=== PATIENT | female | born 1950 ===

== ENCOUNTER 2024-09-13 14:16 | Emergency (ER) | payer OTHER, SELFPAY ==
[2024-09-13] VITALS (7 sets, daily range): BP systolic 114–150; BP diastolic 57–80; BMI 28.3
[2024-09-13 15:10] LABS: % Basophils 0.6 % (0-2); % Eosinophils 1.1 % (0-6); % Immature Granulocytes 0.9 % (0-0.5); % Lymphocytes 18.6 % (20.5-51.1); % Monocytes 6.4 % (1.7-9.3); % Neutrophils 72.4 % (42.2-75.2); Absolute Basophils 0.1 10^3/uL (0-0.2); Absolute Eosinophils 0.1 10^3/uL (0-0.7); Absolute Immature Granulocytes 0.1 10^3/uL (0-0.05); Absolute Lymphocytes 1.6 10^3/uL (1.2-3.4); Absolute Monocytes 0.6 10^3/uL (0.1-0.6); Absolute Neutrophils 6.3 10^3/uL (1.4-6.5); Hematocrit 47.1 % (37.0-47.0); Hemoglobin 15.3 g/dL (12.0-16.0); Mean Corp Hgb Conc. 32.5 g/dL (33.0-37.0); Mean Corpuscular Hgb 29.5 pg (27.0-31.0); Mean Corpuscular Volume 90.9 fL (81.0-99.0); Mean Platelet Volume 11.3 fL (7.4-10.4); Nucleated Red Blood Cells % 0 %; Platelet Count 192 10^3/uL (130-400); Red Blood Cell Count 5.18 10^6/uL (4.20-5.40); Red Cell Dist. Width 14.5 % (11.5-14.5); White Blood Cell Count 8.7 10^3/uL (4.8-10.8)
[2024-09-13 15:18] LABS: Urine Albumin Trace (Neg - Trace); Urine Bilirubin Negative (Negative); Urine Character Clear (Clear); Urine Color Straw; Urine Glucose 3+ (Negative); Urine Ketone Negative (Negative); Urine Leukocyte Negative (Negative); Urine Nitrite Negative (Negative); Urine Occult Blood Negative (Negative); Urine Urobilinogen Negative (Neg - 1+)
[2024-09-13 15:22] LABS: ALT (SGPT) 26 U/L (0-35); AST (SGOT) 29 U/L (14-36); Albumin 5.1 g/dl (3.5-5.0); Alkaline Phosphatase 70 U/L (38-126); Blood Urea Nitrogen 34 mg/dl (7-17); Calcium 9.9 mg/dl (8.4-10.2); Carbon Dioxide 20 mmol/L (22-30); Chloride 102 mmol/L (98-107); Glucose 130 mg/dl (70-99); Potassium 4.6 mmol/L (3.5-5.1); Sodium 136 mmol/L (135-145); Total Bilirubin 0.4 mg/dl (0.2-1.3); Total Protein 7.8 g/dl (6.3-8.2); eGFR > 60.00
--- NOTE | 2024-09-13 18:07 | ED.GENMED ---
History of Present Illness
General
Chief Complaint: Urinary Symptoms
Source: patient
Exam Limitations: none
Time Seen by Provider: 09/13/24 16:18
Nursing documentation reviewed up to this point in time: agreed with
History of Present Illness
History of Present Illness:
PT IS A 74 Y/O F
lives with brother
is here by herself right now saying she has had a few days of R lower back pain. she also has ahd some forgetfulness, more than usual, but seems to have documented h/o mild dementia/mild alzheimres
family is going o ut of town and watned to be sure she didn't have a brewing UTI
pt has no urinary complaints
her back pain is in the R low back and is worse with mvoement but not severe, better with aleve
she doesn't htink she crow sa kidney stone
she denies fever, vomiting, weakness, incontinence, numbness
she is here because she knows her brother wants to be sure she is ok before he leaves
they called jaredotis who agreed with her coming in.
Past History
Past History
ED Past Medical History: Other (alzheimers; kidney stone, uti)
ED Past Surgical History: Urological
Social History
Tobacco: Smoker
Alcohol: None
Personal:
Living: with family (Brother)
Review of Systems
Review of Systems
Allergies reviewed?: Yes
Unable to obtain full review of systems at this time due to: dementia
All Other Systems: Not applicable
Phy Exam
Physical Exam
Physical Exam:
GENERAL: Alert , in no apparent distress, comfortable at rest
HEAD: NCAT
NECK: no midline tenderness, active ROM intact, no paraspinal muscle tenderness;
CARDIAC: Regular rate and rhythm, no edema
LUNGS: Clear breath sounds bilaterally, no acute respiratory distress, no wheezes/rales/rhonchi
ABDOMEN: Soft, without focal tenderness, no r/g, no cvat, normal bowel sounds, nondistended
NEUROLOGICAL: Alert and oriented, no focal neuro deficits, CN intact, 5/5 strength, sensation intact, ambulation normal
SKIN: Warm and dry,
MUSCULOSKELETAL: No edema, well perfused.
Patient has no tenderness to palpation of the hip, minimal tenderness in the right SI joint
He has no pain with flexion of the left hip, external rotation, no other discomfort with ROM
Back: No midline tenderness, mild dextroscoliosis, slight right paraspinal muscle tenderness on exam, no swelling
negative straight leg raise Bilaterally
PSYCH: Normal and appropriate interaction.
Course
Orders/Labs/Results
Orders:
Orders
09/13/24 14:57
Complete Blood Count/With Diff Urgent
Comprehensive Metabolic Panel Urgent
Urinalysis Reflex To Culture Urgent
Date Specimen was Collected: 09/13/24
Time Specimen was Collected: 14:47
09/13/24 17:08
CT Abd/pel Without Iv Or Oral Urgent
Comment:
Reason For Exam: R lower back pain, h/o kidney stones
Abnormal Lab Results
09/13/24
14:57
Hct 47.1 H %
(37.0-47.0)
MCHC 32.5 L g/dL
(33.0-37.0)
MPV 11.3 H fL
(7.4-10.4)
Abs Immat Gran (auto) 0.1 H 10^3/uL
(0-0.05)
Immature Gran % 0.9 H %
(0-0.5)
Lymphocytes % 18.6 L %
(20.5-51.1)
Carbon Dioxide 20 L mmol/L
(22-30)
BUN 34 H mg/dl
(7-17)
Glucose 130 H mg/dl
(70-99)
Albumin 5.1 H g/dl
(3.5-5.0)
Urine Glucose 3+ A
(Negative)
09/13/24 14:57
09/13/24 14:57
Vital Signs
Initial and Last Documented VS:
Initial Vital Signs
Temp Pulse Resp BP Pulse Ox
36.3 C 97 18 150/71 99
09/13/24 14:44 09/13/24 14:44 09/13/24 14:44 09/13/24 14:44 09/13/24 14:44
Last Documented Vital Signs
Temp Pulse Resp BP Pulse Ox
36.3 C 85 18 136/80 97
09/13/24 14:44 09/13/24 22:45 09/13/24 22:45 09/13/24 22:45 09/13/24 22:45
MDM/Problems Addressed
Differential Diagnosis Includes:
msk back pain, kidney sotne, uti
MDM/Problems Addressed:
89 y/o F
known mild dementia
lives with borther
having some Low nonradiating R sided back pain for a few days, no trauma
no weakness/numbness
she doesn't feel this is kidney stone
but brother is going out of town and wanted her looked at
she has exam c/w msk lower back pain without red flag sxs for cauda equina; wbc normal, ua neg for ifnectiou
appreciate chroinc bun elevation which isn't much different and co2 elevation on chemistries
unforutmnateyl her CT took a long time to complete because of departmental need
but her CT showed incidental findigns that were disclosed (adrenal adenoma, breast cyst etc)
but no obstructive uropathy; has 2 stones in kidney
d/c home
*Critical Care Note
Total Time (30-74mins, 75-104mins- exclusive of procedures): Not Applicable
ED Attending Note
-
Portions of this chart may have been created with voice recognition software.� Occasional wrong word or��sound alike� substitutions may have occurred due to the inherent limitations of voice recognition software.
Discharge Plan
Departure
Patient Disposition: Home (Routine Discharge)
Date of Disposition: 09/13/24
Time of Disposition: 22:46
Patient with high blood pressure during this ER visit?: No
Discharge Problem:
Back pain
Instructions: Back Pain
Prescriptions:
No Action
losartan 50 mg Tablet
50 mg PO DAILY 30 Days Qty: 30 0RF
metformin 500 mg Tablet
500 mg PO BID@0800,1700 30 Days Qty: 60 0RF
atorvastatin 20 mg Tablet
20 mg PO QPM 30 Days Qty: 30 0RF
glipizide 5 mg Tablet
5 mg PO BID
sulfamethoxazole-trimethoprim [Bactrim DS] 800-160 mg Tablet
1 tab PO BID
Referrals:
Harriett Mark CRNP [Family Provider] - Follow up in 2-3 days
Activity Restrictions/Additional Instructions:
YOUR URINE AND CAT SCAN SHOWED NO SIGN OF INFECTION OR KIDNEY STONE
TRY TYLENOL OR MOTRIN FOR YOUR PAIN
LIDOCAINE PATCH 12 HOURS ON 12 HOURS OFF NEEDED FOR PAIN
RETURN FOR: SEVERE PAIN, FEVER, CHILLS, VOMITING, OR ANY COCNERNS
* YOUR CAT SCAN SHOWED INCIDENTAL MASS IN THE BREAST ON THE LEFT WHICH SHOULD HAVE MAMMOGRAM
YOU ALSO HAE A 1 CM RIGHT ADRENAL GLAND ADENOMA
YOU SHOULD FOLLOW THIS UP WITH BLOOD WORK TO MAKE SURE IT IS NOT FUNCTIONAL
YOU HAVE SOME DEGENERATIVE CHANGES IN YOUR SPINE
Interventions
Interventions:
*Risk Screen - Suicide Last Done: 09/13/24 14:44
*General Assessment Last Done: 09/13/24 14:44
*Neglect/Abuse Screening Last Done: 09/13/24 14:44
ED- Fall Risk Assessment Last Done: 09/13/24 22:46
*ED COVID-19 Vaccine History Last Done: 09/13/24 17:27
*Nursing Disposition Last Done: 09/13/24 22:46
ED-Female Genitourinary Assessment Last Done: 09/13/24 17:27
Discharge Date and Time
Discharge Date/Time: 09/13/24 22:46
Print Language: SAMI
== END 2024-09-13 22:46 | disposition home or self-care (01) ==
LOC: EMR 14:16
PROVIDERS: EMERGENCY PHYSICIAN Emergency Medicine; FAMILY PHYSICIAN Nurse Practitioner
DX: M54.50 Low back pain, unspecified (principal); G30.9 Alzheimer's disease, unspecified; F02.A0 Dementia in other diseases classified elsewhere, mild, without behavioral disturbance, psychotic disturbance, mood disturbance, and anxiety; F17.200 Nicotine dependence, unspecified, uncomplicated
CPT/HCPCS: 99284; 74176; 80053; 81003; 85025

== ENCOUNTER → 2024-11-11 09:56 | Outpatient (REF) | payer OTHER, SELFPAY | LOC: WDC 09:56 | PROVIDERS: ATTENDING PHYSICIAN Internal Medicine | DX: N63.20 Unspecified lump in the left breast, unspecified quadrant (principal); N63.22 Unspecified lump in the left breast, upper inner quadrant | CPT/HCPCS: 76642; 77062; 77066 ==

== ENCOUNTER → 2024-11-18 07:46 | Outpatient (REF) | payer OTHER, SELFPAY ==
--- NOTE | 2024-11-18 14:12 | OID.BR.INTR ---
[facility] Breast Navigator - Initial
- -
Date of Contact: 11/18/24
Met with patient. Patient's brother (spring coiler hand) given written information on navigator services available at [facility]. Will follow up as needed per protocol.
== END ==
LOC: WDC 07:46
PROVIDERS: ATTENDING PHYSICIAN Internal Medicine
DX: N63.11 Unspecified lump in the right breast, upper outer quadrant (principal); N63.23 Unspecified lump in the left breast, lower outer quadrant
CPT/HCPCS: 88305; 19083; 19084; 88341; 88360; A4648

== ENCOUNTER → 2024-12-16 06:49 | Outpatient (REF) | payer OTHER, SELFPAY | LOC: RAD 06:49 | PROVIDERS: ATTENDING PHYSICIAN Surgery; FAMILY PHYSICIAN Internal Medicine; OTHER PHYSICIAN Internal Medicine Hematology & Oncology | DX: C50.911 Malignant neoplasm of unspecified site of right female breast (principal); C50.912 Malignant neoplasm of unspecified site of left female breast; Z17.0 Estrogen receptor positive status [ER+] | CPT/HCPCS: 71270; 74178; 78306; A9503; Q9967 ==

== ENCOUNTER 2024-12-31 13:27 | Day surgery (SDC) | payer OTHER, SELFPAY ==
[2024-12-31] VITALS (13 sets, daily range): BP systolic 108–141; BP diastolic 44–77; BMI 29.1; BMI 28.0
--- NOTE | 2024-12-31 06:25 | ED.GENMED ---
History of Present Illness
General
Chief Complaint: Overdose Unintentional
Time Seen by Provider: 12/31/24 06:25
History of Present Illness
History of Present Illness:
TIME OF INITIAL ENCOUNTER: 6:30 AM
HPI: The patient presents with her brother/caregiver. She accidentally took Efferdent instead of taking Kimmy-Jackson. Brother noted some worsening of her known dementia yesterday but was concerned when he found out that she took the Efferdent.
The patient has some lower abdominal cramping. Otherwise, she has no specific complaints. No nausea.
EXAM:
GENERAL: Appears in no distress
HEENT: Moist oral mucosa
CARDIOVASCULAR: Regular rate and rhythm
PULMONARY: No respiratory distress, breathing is nonlabored, equal and clear breath sounds
ABDOMEN: Soft with no peritoneal signs however mild R>L abd tenderness
NEUROLOGIC: The patient has evidence of dementia, not oriented to month (thinks it may) or place (knows she is at a hospital but cannot name which 1), strength is equal in all extremities
EXTREMITIES: Moves all extremities equally, no tenderness, no edema
PYSCHIATRIC: Very limited historian, poor insight and judgment
NUMBER AND COMPLEXITY OF PROBLEMS ADDRESSED AT THE ENCOUNTER
� Chronic conditions affecting care: Dementia, high blood pressure, hyperlipidemia, diabetes, breast cancer
� Acute Exacerbation and/or Progression of Chronic Illness: This is an acute problem
� Differential Diagnosis includes: Accidental ingestion, electrolyte abnormality, GI side effects
AMOUNT AND/OR COMPLEXITY OF DATA TO BE REVIEWED AND ANALYZED
� I performed an independent evaluation of and my interpretation is:
EKG:
CT: I personally reviewed CT imaging and agree with radiologist interpretation. There is clearly a dilated appendix with stranding.
X-rays: Abdominal x-ray shows nonspecific bowel gas pattern
Laboratory Studies: White count 17.7, hemoglobin 13.4, BUN 27, creatinine 0.8
Other:
� Review of other/old records: I reviewed records, the patient went to the OR related to kidney stone in 2022
� Clinical information was obtained by an independent historian: I spoke to brother at bed
� Prescriptions/Medications Considered but not given:
� Further testing considered but not performed:
RISK OF COMPLICATIONS AND/OR MORBIDITY OR MORTALITY OF PATIENT MANAGEMENT
� Social determinants of health affecting care: Lives at home and brother's roll mill operator side
� Discussion with other providers:
� Escalation of care including admission/observation vs risk of discharge considered: The patient is found to have leukocytosis which is new. Send she does have associated abdominal cramping, CT imaging obtained.
ANY OTHER UPDATES:
8 AM: No change in clinical condition. I also spoke to Dr. Black, black and white printer operator at [facility] who agrees with the current workup but no other specific recommendations.
8:15 AM: CT shows evidence of appendicitis. She does have bilateral right greater than left abdominal tenderness. I ordered Unasyn. Notified Dr. Jacome. I also discussed with hospitalist however Dr. Singh recommends Dr. Jacome admit with consult
to hospitalist if needed.
8:52 AM: Awaiting Dr. Jacome evaluation in the ED.
9 AM: Dr. Jacome evaluated the patient in the ED. Planning on admitting to his service with consult to medicine.
Past History
Past History
ED Past Medical History: Other (alzheimers; kidney stone, uti)
ED Past Surgical History: Urological
Social History
Tobacco: Smoker
Alcohol: None
Personal:
Living: with family (Brother)
Phy Exam
Physical Exam
Physical Exam:
See HPI
Course
Orders/Labs/Results
Orders:
Orders
12/31/24 06:31
Complete Blood Count/With Diff Urgent
Comprehensive Metabolic Panel Urgent
12/31/24 06:34
CR Obstruct Series W/pa Chest Urgent
Comment:
Reason For Exam: pain, efferdent ingestion, eval for perforation
12/31/24 06:37
0.9% Sodium Chloride 1000 ml [Nss] 1,000 ml IV BOLUS
12/31/24 07:15
CT Abd/pelvis W Iv Cont Urgent
Comment:
Reason For Exam: abd pain lower; leukocytosis
12/31/24 08:25
Ampicillin/Sulbactam 3 G [Unasyn] 3 gm 0.9% Sodium Chloride 100 ml [Nss] 100 ml IV NOW
12/31/24 09:45
HYDROmorphone [Dilaudid] 0.25 mg IV PACU-Q5MPRN PRN
HYDROmorphone [Dilaudid] 0.5 mg IV PACU-Q5MPRN PRN
Normosol (Mult Electrolytes) [Normosol-R/Plasmalyte-A] 1,000 ml IV PER PROTOCOL
Ondansetron Injectable [Zofran] 4 mg IV PACU-ONCEPRN PRN
Prochlorperazine [Compazine] 5 mg IV PACU-ONCEPRN PRN
Notify MD As Directed
Notify physician if: for SDS patients with known or suspected sleep obstructive sleep apnea, monitor in the
PACU.
Notify MD for any apneic/desaturation episodes
O2 Therapy [RESP] Urgent
Titrate/Wean O2 to maintain O2 sat greater than (%): 92
Special Instructions: -Provide supplemental oxygen to achieve O2 sat of 92% or greater.
-After 15 min, may wean O2 and discontinue if patient is able to maintain O2 sat of 92%
or greater during recovery period.
If patient is a discharge home, without oxygen therapy, notify anestheiologist if
unable to maintain O2 SAT of 92% or greater on room air for MD clearance.
Abnormal Lab Results
12/31/24
06:31
WBC 17.7 H 10^3/uL
(4.8-10.8)
MPV 11.4 H fL
(7.4-10.4)
Abs Immat Gran (auto) 0.1 H 10^3/uL
(0-0.05)
Absolute Neuts (auto) 14.9 H 10^3/uL
(1.4-6.5)
Absolute Monos (auto) 1.2 H 10^3/uL
(0.1-0.6)
Neutrophils % 84.4 H %
(42.2-75.2)
Lymphocytes % 8.1 L %
(20.5-51.1)
BUN 29 H mg/dl
(7-17)
Glucose 176 H mg/dl
(70-99)
Calcium 10.3 H mg/dl
(8.4-10.2)
12/31/24 06:31
12/31/24 06:31
Vital Signs
Initial and Last Documented VS:
Initial Vital Signs
Temp Pulse Resp BP Pulse Ox
37.0 C 110 20 111/67 94
12/31/24 06:14 12/31/24 06:14 12/31/24 06:14 12/31/24 06:14 12/31/24 06:14
Last Documented Vital Signs
Temp Pulse Resp BP Pulse Ox
37.0 C 87 16 117/77 98
12/31/24 06:14 12/31/24 07:30 12/31/24 07:30 12/31/24 09:37 12/31/24 09:37
*Critical Care Note
Total Time (30-74mins, 75-104mins- exclusive of procedures): Not Applicable
ED Attending Note
-
Portions of this chart may have been created with voice recognition software.� Occasional wrong word or��sound alike� substitutions may have occurred due to the inherent limitations of voice recognition software.
Discharge Plan
Departure
Patient Disposition: Admit
Date of Disposition: 12/31/24
Time of Disposition: 08:16
Presentation/result/management discussed w/ accepting MD/DO: dr jacome
Discharge Problem:
Acute appendicitis
Prescriptions:
No Action
losartan 50 mg Tablet
50 mg PO DAILY 30 Days Qty: 30 0RF
atorvastatin 20 mg Tablet
20 mg PO QPM 30 Days Qty: 30 0RF
glipizide 10 mg tablet
10 mg PO BID
letrozole 2.5 mg tablet
2.5 mg PO DAILY
sertraline 50 mg tablet
50 mg PO DAILY
quetiapine 50 mg tablet
50 mg PO QPM
Janumet 50-1,000 mg tablet
1 tab PO BID
calcium carbonate-vitamin D3 [Calcium 500 + D (D3)] 500 mg-3.125 mcg (125 unit) Tablet
1 tab PO BID
dapagliflozin propanediol [Farxiga] 10 mg tablet
10 mg PO DAILY
Referrals:
Josep Mireles MD [Family Provider] -
Interventions
Interventions:
*Risk Screen - Suicide Last Done: 12/31/24 06:14
*General Assessment Last Done: 12/31/24 06:26
*Neglect/Abuse Screening Last Done: 12/31/24 06:26
*ED- Fall Risk Assessment Last Done: 12/31/24 06:26
*ED COVID-19 Vaccine History Last Done: 12/31/24 06:26
ED- Cardiac Assessment Last Done: 12/31/24 06:26
ED- Neurological Assessment Last Done: 12/31/24 06:26
ED-Psychological Assessment Last Done: 12/31/24 06:26
ED- Pulmonary Assessment Last Done: 12/31/24 06:26
Discharge Date and Time
Print Language: SINGAPOREAN
[2024-12-31] MEDS: NSS 1000 IV ×3 (06:39→15:58)
[2024-12-31 06:43] LABS: % Basophils 0.2 % (0-2); % Eosinophils 0.1 % (0-6); % Immature Granulocytes 0.4 % (0-0.5); % Lymphocytes 8.1 % (20.5-51.1); % Monocytes 6.8 % (1.7-9.3); % Neutrophils 84.4 % (42.2-75.2); Absolute Immature Granulocytes 0.1 10^3/uL (0-0.05); Absolute Lymphocytes 1.4 10^3/uL (1.2-3.4); Absolute Monocytes 1.2 10^3/uL (0.1-0.6); Absolute Neutrophils 14.9 10^3/uL (1.4-6.5); Hematocrit 39.2 % (37.0-47.0); Hemoglobin 13.4 g/dL (12.0-16.0); Mean Corp Hgb Conc. 34.2 g/dL (33.0-37.0); Mean Corpuscular Hgb 30.7 pg (27.0-31.0); Mean Corpuscular Volume 89.7 fL (81.0-99.0); Mean Platelet Volume 11.4 fL (7.4-10.4); Nucleated Red Blood Cells % 0 %; Platelet Count 172 10^3/uL (130-400); Red Blood Cell Count 4.37 10^6/uL (4.20-5.40); Red Cell Dist. Width 13.5 % (11.5-14.5); White Blood Cell Count 17.7 10^3/uL (4.8-10.8)
[2024-12-31 06:56] LABS: ALT (SGPT) 26 U/L (0-35); AST (SGOT) 28 U/L (14-36); Albumin 4.7 g/dl (3.5-5.0); Alkaline Phosphatase 86 U/L (38-126); Blood Urea Nitrogen 29 mg/dl (7-17); Calcium 10.3 mg/dl (8.4-10.2); Carbon Dioxide 24 mmol/L (22-30); Chloride 106 mmol/L (98-107); Estimated Creatinine Clearance 48 ml/min; Glucose 176 mg/dl (70-99); Potassium 4.8 mmol/L (3.5-5.1); Sodium 137 mmol/L (135-145); Total Bilirubin 0.7 mg/dl (0.2-1.3); Total Protein 7.3 g/dl (6.3-8.2); eGFR > 60.00
[2024-12-31] MEDS: UNASYN IV ×3 (08:46→22:16)
--- NOTE | 2024-12-31 10:11 | CON.HOSP ---
Consultation
-
Date/Time Consultation Requested: 91012/31/24
Date/Time Consultation Performed: 94912/31/24
Requesting Provider: Dr. Jacome
Performing Provider: Dr. Singh
Reason for Consultation: Medical management
Family Physician
-
Family Physician: Josep Mireles
Chief Complaint
-
Abdominal pain
History of Present Illness
74 y/o F with PMHx:
Alzheimer's Dementia
DM2
Essential hypertension
Hyperlipidemia
Breast CA (recently diagnosed)
Who presents with a chief complaint of abdominal pain. The patient reports for the last few days she has had suprapubic and right lower quadrant abdominal pain. She denies any modifying factors. She states the severity is mild to moderate and
fairly constant. She denies any fevers, vomiting, diarrhea. As per discussion with the ER the patient's brother, who is the patient's caregiver, brought her in because he was afraid that she accidentally ingested Efferdent. CT A/P showed acute
appendicitis. As per discussion with Dr. Jacome pt is going to the OR today and has requested a consultation for medical management.
Medical History
Past Medical History
Past Medical History: Reports Other (as per HPI)
Additional Past Medical History:
Alzheimer's Dementia
DM2
Essential hypertension
Hyperlipidemia
Breast CA (recently diagnosed)
Past Surgical History: Reports Other (N/A)
Social History
Tobacco: Smoker (09/24 ppd)
Alcohol: None
Drug: None
Family History
Family History: Reviewed & Not Pertinent
Allergies / Home Medications
Allergies reflects when Allergies were last updated in [employer]
Home Medications with original date entered in [employer]
Allergy/Medication List:
Allergies
Allergy/AdvReac Type Severity Reaction Status Date / Time
No Known Allergies Allergy Verified 12/31/24 06:14
Home Medications
atorvastatin 20 mg tablet 20 mg PO QPM 30 days #30 tabs 09/25/22
losartan 50 mg tablet 50 mg PO DAILY Blood pressure 30 days #30 tabs 09/25/22
calcium 500 mg (as carbonate)-vitamin D3 3.125 mcg (125 unit) tablet 1 tab PO BID 12/31/24
dapagliflozin propanediol 10 mg tablet (Farxiga) 10 mg PO DAILY 12/31/24
glipizide 10 mg tablet 10 mg PO BID 12/31/24
letrozole 2.5 mg tablet 2.5 mg PO DAILY 12/31/24
quetiapine 50 mg tablet 50 mg PO QPM 12/31/24
sertraline 50 mg tablet 50 mg PO DAILY 12/31/24
sitagliptin phosphate 50 mg-metformin 1,000 mg tablet (Janumet) 1 tab PO BID 12/31/24
Review of Systems
-
History Source: Patient
A 12 point Review of Systems was completed except as noted: Yes
Physical Exam
Vital Signs
Vital Signs
Temp Pulse Resp BP Pulse Ox
98.6 F 87 16 117/77 98
12/31/24 06:14 12/31/24 07:30 12/31/24 07:30 12/31/24 09:37 12/31/24 09:37
Physical Exam
General: Other (.)
Laboratory Results
-
Laboratory Results
12/31/24 06:31
12/31/24 06:31
Total Bilirubin 0.7 mg/dl (0.2-1.3) 12/31/24 06:31
AST 28 U/L (14-36) 12/31/24 06:31
ALT 26 U/L (0-35) 12/31/24 06:31
Alkaline Phosphatase 86 U/L (38-126) 12/31/24 06:31
Impression / Plan
-
Gen: NAD, AAOx3.
Eyes: EOMI, PERRLA, no scleral icterus.
Neck: supple.
CV: RRR, +S1/S2, no m/r/g.
Resp: CTAB, no rales, wheezes, or rhonchi.
Abd: +BS, soft, NT, ND
Skin: No rashes.
Neuro: CN 2-12 intact, non-focal.
Psych: Normal mood and affect.
OBST series: No acute findings within the chest. Nonobstructive bowel gas pattern. No free air.
CT A/P:
1. Acute appendicitis. The appendix is dilated measuring 13 mm with periappendiceal stranding. No extraluminal gas or fluid collections.
2. Partially imaged bilateral breast masses, partially necrotic lesion within the left breast measuring 2.9 cm. Patient has known breast cancer.
Acute Appendicitis:
-case discussed with Dr. Jacome, going to OR today for appendectomy
-surgery managing
Alzheimer's Dementia: Cont Zoloft/Seroquel
DM2: Hold all home PO antihyperglycemic meds. SSI/accuchecks, check a1c.
Essential hypertension: cont Losartan
Hyperlipidemia: cont statin
Breast CA (recently diagnosed): As per discussion with the pt's son patient has decided against surgery for her breast cancer. She is seeing Dr. May Varner for management/medical therapy.
Thank you for the courtesy of this consultation. We will follow along with you.
--- NOTE | 2024-12-31 10:20 | HPS.HSE ---
Addendum entered and electronically signed by Serge Jacome MD 01/01/25 07:31:
I saw and examined the patient independently.
The Master At Arms's note was reviewed and I agree with the note, assessment and plan except where noted below.
Comment: Patient seen and examined yesterday 12/31/2024 with the SENIOR TECHNICAL RECRUITER. 74-year-old female with a history of Alzheimer's, newly diagnosed breast cancer who developed new onset abdominal pain found to have acute cholecystitis on CT imaging.
Will plan for laparoscopic appendectomy today.
N.p.o., IV fluids, IV antibiotics ordered.
Risks/Benefits/Alternatives, expected postoperative course and possible complications (bleeding, infection, injury to surrounding structures, acute/chronic pain) discussed at length. Patient wishes to proceed with surgery. All questions answered.
Consent obtained From both patient and brother.
I spent 60 minutes in total for the care of this patient today including direct patient care and counseling, reviewing labs, imaging, coordination of care, as well as documentation.
Original Note:
Family Physician
-
Family Physician: Josep Mireles
Chief Complaint
-
abdominal pain
History of Present Illness
Ms Ozuna is a 74 yo female with a h/o Alzheimer's dementia, DM, YASHIRA and newly diagnosed breast CA (on letrozole following with Dr. Red) who presented through the ED with her brother who is her caregiver for abdominal pain. It is unclear how long
her pain has lasted, but her brother who is her primary caregiver noted that yesterday she was becoming a bit more confused. She noted some GI upset and thought her Efferdent was Kimmy-Bailey and tried this for relief. Today, she complained of
worsening pain mostly in the lower abdomen prompting him to bring her to the ER for evaluation. On exam, she has tenderness from the RLQ into the suprapubic area. She denies nausea or vomiting. She has had no noted fevers at home.
Medical History
Past Medical History
Past Medical History: Reports Cancer (breast), Hypercholesterolemia, NIDDM and Other (renal calculi, alzheimer's dementia)
Past Surgical History: Reports Gynocological (YASHIRA via a pfannenstiel incision) and Urological (ureteroscopy for renal calculi)
Social History
Tobacco: Non-smoker
Alcohol: None
Living: With Family
Family History
Family History: Not pertinent
Allergies / Home Medications
Allergies reflects when Allergies were last updated in [employer].
Home Medications with original date entered in [employer]
Allergy/Medication List:
Patient Allergies
Allergy/AdvReac Type Severity Reaction Status Date / Time
No Known Allergies Allergy Verified 12/31/24 06:14
�Medication �Instructions �Recorded �Confirmed �Type
atorvastatin 20 mg tablet 20 mg PO QPM 30 days #30 tabs 09/25/22 12/31/24 Rx
losartan 50 mg tablet 50 mg PO DAILY Blood pressure 30 09/25/22 12/31/24 Rx
days #30 tabs
calcium 500 mg (as 1 tab PO BID 12/31/24 12/31/24 History
carbonate)-vitamin D3 3.125 mcg
(125 unit) tablet
dapagliflozin propanediol 10 mg 10 mg PO DAILY 12/31/24 12/31/24 History
tablet (Farxiga)
glipizide 10 mg tablet 10 mg PO BID 12/31/24 12/31/24 History
letrozole 2.5 mg tablet 2.5 mg PO DAILY 12/31/24 12/31/24 History
quetiapine 50 mg tablet 50 mg PO QPM 12/31/24 12/31/24 History
sertraline 50 mg tablet 50 mg PO DAILY 12/31/24 12/31/24 History
sitagliptin phosphate 50 1 tab PO BID 12/31/24 12/31/24 History
mg-metformin 1,000 mg tablet
(Janumet)
Review of Systems
-
History Source: Patient and Family
A 12 point ROS was completed and negative except as noted: Yes
Physical Exam
Vital Signs
Vital Signs
Temp Pulse Resp BP Pulse Ox
98.6 F 87 16 117/77 98
12/31/24 06:14 12/31/24 07:30 12/31/24 07:30 12/31/24 09:37 12/31/24 09:37
Physical Exam
General: Well Developed and Well Nourished
HEENT: Moist mucous membranes
Respiratory: Non Labored Respirations
GI: Soft, Non Distended and Tender (RLQ into suprapubic area)
Skin: Warm and Dry
Neuro: Awake, Alert and Other (forgetful)
Psych: Calm
Laboratory Results
-
12/31/24 06:31
12/31/24 06:31
Laboratory Results
Total Bilirubin 0.7 mg/dl (0.2-1.3) 12/31/24 06:31
AST 28 U/L (14-36) 12/31/24 06:31
ALT 26 U/L (0-35) 12/31/24 06:31
Alkaline Phosphatase 86 U/L (38-126) 12/31/24 06:31
Data Reviewed
-
CT Scan: Image Personally Visualized and interpreted, Report Reviewed by me, Discussed with Physician, Discussed with Patient and Discussed with Family
Lab Data: Labs Reviewed by me, Discussed with Physician, Discussed with Patient and Discussed with Family
Old Records: Reviewed
Impression/Plan
-
IMPRESSION:
74 yo female with a h/o Alzheimer's dementia, DM, YASHIRA and newly diagnosed breast CA (on letrozole following with Dr. Red) who presented through the ED with her brother for abdominal pain. Tender to the RLQ into the suprapubic region with CT
imaging consistent with acute appendicitis. Leukocytosis with WBC of 17.7. AFVSS.
PLAN:
NPO for OR later today for laparoscopic appendectomy
Continue IV Unasyn
IVF while NPO
Sliding scale insulin while NPO, oral diabetic agents held
Consult medicine for medical/DM management
--- NOTE | 2024-12-31 10:28 | W.SUR.PREOP ---
Pre-Operative Surgical Note
-
I have examined this patient prior to the performance of the scheduled procedure.
The patient's condition is unchanged from the time of the current History and
Physical and the patient is able to undergo the scheduled procedure.
--- NOTE | 2024-12-31 14:06 | W.IMMPOSTOP ---
Surgical Immed Post Op Note
-
Primary Surgeon: Serge Jacome MD
Assisting Surgeon: None
Pre-op Diagnosis: Acute appendicitis
Post-op Diagnosis: Acute appendicitis, intra-abdominal adhesions
Procedure Performed: Laparoscopic appendectomy, lysis of adhesions
Anesthesia Type: General
Specimen / Cultures: Appendix
Estimated Blood Loss: 3 cc
Complications: None
Operative Findings: X3 5 mm port appendectomy. Lower midline omental adhesions lysed using electrocautery and blunt dissection performed in order to visualize the surgical area of interest. The appendix was stuck down into the pelvis over the
promontory inflamed but not suppurative or perforated. Base clean, ligated with 0 PDS Endoloop x 2.
POST OP PLAN:
Imaging: None
Labs: Routine AM
Diet: Advance to Regular as tolerated
Analgesia: Tylenol 650mg q6 Ismael, Ling 5mg q6 PRN, Dilaudid 0.5mg q2h PRN
Neuro/vascular checks: q4h
AC/AP: Hold Therapeutic AC, Ok for DVT PPx
Activity: Ad Ana Paula
Wound/Incisions/Drains: Routine
Abx: While admitted
Dispo: RNF, anticipate discharge home tomorrow.
--- NOTE | 2024-12-31 14:10 | OR.RPT ---
Operative Report
Operative Report
Patient Name: Michaela Ozuna
: 1950
Date of Operation: 12/31/2024
Preoperative Diagnosis: Acute Appendicitis
Postoperative Diagnosis: Same
Procedure(s):
Laparoscopic Appendectomy
Surgeon(s):
Dr. Jacome
Program Manager Environmental Planning(s):
MICHELLE Westbrook
Anesthesia: General
Estimated Blood Loss: 3 cc
Urine Output: None
Drains/Lines/Implants: None
Specimens:
1. Appendix
HPI/Surgical Indications:
This is a 74-year-old female who presents with a 1 day history of abdominal pain. Exam, labs and imaging are consistent with acute appendicitis. Risks/Benefits/Alternatives were discussed at length, and the patient agreed to proceed with surgery.
Operative Findings: X3 5 mm port appendectomy. Lower midline omental adhesions lysed using electrocautery and blunt dissection performed in order to visualize the surgical area of interest. The appendix was stuck down into the pelvis over the
promontory inflamed but not suppurative or perforated. Base clean, ligated with 0 PDS Endoloop x 2.
Procedure Description:
The patient was placed in the supine position, with the left arm tucked, and general anesthesia was induced. The abdomen was prepared and draped in a sterile fashion so as to expose the entire abdomen. A surgical time out was taken. Abdominal access
was obtained with a left subcostal Veress entry which required a single pass followed by a 5 mm left lower quadrant Optiview trocar entry. After confirming no injury on entrance, we encountered significant midline adhesions likely from her prior
hysterectomy. These were obscuring our operative field so had to be dissected using electrocautery and blunt dissection. This took roughly 20 minutes. 2 additional 5 mm ports were then placed in the supraumbilical and left upper quadrant areas.
The patient was placed in Trendelenberg with the right slightly up . The appendix was identified over the sacral promontory underneath a very dilated and floppy cecum. The mesoappendix was freed from the retroperitoneal fat. The appendix was
suppurative and inflamed but not perforated. Using a laparoscopic bipolar energy device, the meso appendix was divided. The base of the appendix appeared uninvolved and was ligated/divided using two 0-PDS Endoloops and the energy device. The
appendix was placed in a specimen retrieval bag. Hemostasis was confirmed and the ports were removed under visualization. The specimen was passed off the field. The umbilical port was closed with a [id number] 0-PDS and the skin for all three
ports was closed with interrupted monocryls and covered with dermabond. The patient was awoken from anesthesia in good condition and transported to the recovery area.
I was the attending physician and performed the procedure with assistance from the CARRY IN WORKER above. I was present for all portions of the case excluding skin closure.
Serge Jacome MD
[2024-12-31 14:43] LABS: Glucose - Point of Care 173 mg/dl (70-99)
--- NOTE | 2024-12-31 15:25 | PTCARENOTE ---
Patient admitted from pacu post laparoscopic appendectomy. She was seen in the emergency room with abdominal pain and accidental ingestion of Efferdent.The patient is alert and oriented but forgetful with a history of Alzheimer disease. She states
her pain is 'not to bad' and rates it at a 6 out of 10.All 4 incisions look without drainage.The patient is in her bed with the call parra in reach.
[2024-12-31] MEDS: NOVOLOG FLEXPEN-LOW RESISTANCE SC (17:12)
[2024-12-31] MEDS: LOVENOX 40 MG SC (17:13)
[2024-12-31] MEDS: LIPITOR 20 MG PO (17:15)
[2024-12-31] MEDS: SEROQUEL 50 MG PO (17:16)
[2024-12-31] MEDS: NOVOLOG FLEXPEN-LOW RESISTANCE 1 UNITS SC (17:48)
[2024-12-31 21:23] LABS: Glucose - Point of Care 479 mg/dl (70-99)
[2024-12-31 21:23] LABS: Glucose - Point of Care 462 mg/dl (70-99)
[2024-12-31 22:16] LABS: Glucose 436 mg/dl (70-99)
[2024-12-31] MEDS: NOVOLOG FLEXPEN 7 UNITS SC (22:34)
[2025-01-01 00:34] LABS: Glucose - Point of Care 333 mg/dl (70-99)
[2025-01-01 03:00] VITALS: BP 143/74
[2025-01-01] MEDS: UNASYN IV ×2 (04:09→08:53)
[2025-01-01] MEDS: NSS 1000 IV (06:41)
[2025-01-01 07:49] LABS: Glucose - Point of Care 176 mg/dl (70-99)
[2025-01-01 07:50] VITALS: BP 111/65
[2025-01-01 08:29] LABS: Blood Urea Nitrogen 25 mg/dl (7-17); Calcium 8.3 mg/dl (8.4-10.2); Carbon Dioxide 19 mmol/L (22-30); Chloride 110 mmol/L (98-107); Estimated Creatinine Clearance 43 ml/min; Glucose 187 mg/dl (70-99); Potassium 4.4 mmol/L (3.5-5.1); Sodium 139 mmol/L (135-145); eGFR > 60.00
[2025-01-01] MEDS: FEMARA 2.5 MG PO (08:47)
[2025-01-01] MEDS: COZAAR 50 MG PO (08:47)
[2025-01-01] MEDS: GLUCOTROL 5 MG PO (08:47)
[2025-01-01] MEDS: JANUVIA 50 MG PO (08:48)
[2025-01-01] MEDS: ZOLOFT 50 MG PO (08:49)
[2025-01-01] MEDS: FARXIGA 10 MG PO (08:51)
[2025-01-01] MEDS: GLUCOPHAGE 1000 MG PO (08:51)
[2025-01-01] MEDS: NOVOLOG FLEXPEN-LOW RESISTANCE 1 UNITS SC (08:51)
[2025-01-01] MEDS: OSCAL 500 + D 500 MG PO (08:51)
--- NOTE | 2025-01-01 11:11 | W.PN.GS2 ---
Today's Communication / Plan
-
dispo planning
Assessment / Plan
-
74 yo female with a h/o Alzheimer's presenting with acute appendicitis now POD #1 lap appi
AFVSS
Hyperglycemia overnight, corrected with sq insulin and PO meds resumed by hospitalist team
Progressing well from surgical standpoint
--Analgesics prn
--OOB/Ambulate
--C/W ADA diet
--c/w home PO meds
Dispo planning
Subjective Data
-
Date of Service: January 01, 2025
Patient seen and examined at bedside with Dr. Jacome. OMEGA to chair and having breakfast. Denies n/v. Tolerating diet. Pain is minimal.
Objective Data
-
Intake and Output
12/31/24 01/01/25 01/02/25
06:59 06:59 06:59
Intake Total 1675 / 1675
Balance 1675 / 1675
Intake:
Oral fluids 480 / 480
IV fluids (Total) 955 / 955
Normosol 75 / 75
IV piggybacks 240 / 240
Other:
Number of approximated MODERATE 1
amounts of urine
Number of approximated LARGE 1
amounts of urine
Vital Signs
Temp Pulse Resp BP Pulse Ox
97.8 F 68 18 111/65 96
01/01/25 07:50 01/01/25 08:47 01/01/25 07:50 01/01/25 08:47 01/01/25 07:50
Lab Results
01/01/25 07:55
01/01/25 05:55
Calcium 8.3 mg/dl (8.4-10.2) L D 01/01/25 05:55
Total Bilirubin 0.7 mg/dl (0.2-1.3) 12/31/24 06:31
AST 28 U/L (14-36) 12/31/24 06:
ALT 26 U/L (0-35) 12/31/24:
Alkaline Phosphatase 86 U/L (38-126) 12/31/24 06:
Total Protein 7.3 g/dl (6.3-8.2) 12/31/24 06:
Albumin 4.7 g/dl (3.5-5.0) 12/31/24 06:31
Physical Exam
-
NAD, baseline mentation ox2-3
ABD soft, mild incisional tenderness, nd
Incisions well approximated with intact glue
--- NOTE | 2025-01-01 11:48 | W.PN.HOSP.TC ---
Today's Communication/Plan
-
Restarted oral hypoglycemic agents. Follow sugars
Assessment / Plan
Assessment / Plan
73-year-old status post appendectomy
CT A/P:
1. Acute appendicitis. The appendix is dilated measuring 13 mm with periappendiceal stranding. No extraluminal gas or fluid collections.
2. Partially imaged bilateral breast masses, partially necrotic lesion within the left breast measuring 2.9 cm. Patient has known breast cancer.
CVS: S1-S2 normal
Chest: CTA B/L
Abdomen: Soft, Lap wounds stable, BS present.
Extremities: No edema
#Acute Appendicitis
status post laparoscopic appendectomy by Dr. Jacome on 12/31/2024
Currently on antibiotics
Postop management per surgery
Continue pain control
Started on 1800 ADA diet
# Diabetes-hemoglobin A1c pending
Restarted Farxiga, glipizide, Janumet
Will reduce glipizide to 5 mg twice daily as sugar is 176 this morning even though it was elevated yesterday
Continue Accu-Cheks and sliding scale coverage
# Alzheimer's Dementia: Cont Zoloft/Seroquel
# Essential hypertension: cont Losartan
# Hyperlipidemia: cont statin
# Breast CA (recently diagnosed): 'As per discussion with the pt's son patient has decided against surgery for her breast cancer. She is seeing Dr. May Varner for management/medical therapy.'
# DVT prophylaxis-Lovenox
# Full code
Anticipated Discharge: Within 24 hours
Subjective/Interval History
-
Date of Service: January 01, 2025
Objective Data
-
Labs:
Laboratory Results
01/01/25 01/01/25
05:55 07:55
WBC Pending Cancelled
Hgb Pending Cancelled
Hct Pending Cancelled
Plt Count Pending Cancelled
Sodium 139
Potassium 4.4
Chloride 110 H
Carbon Dioxide 19 L
BUN 25 H
Creatinine 0.9
Glucose 187 H
Calcium 8.3 L D
Vital Signs:
Vital Signs
Temp Pulse Resp BP Pulse Ox
97.8 F 68 18 111/65 96
01/01/25 07:50 01/01/25 08:47 01/01/25 07:50 01/01/25 08:47 01/01/25 07:50
I&O
12/31/24 01/01/25 01/02/25
06:59 06:59 06:59
Intake Total 1674 / 1675
Balance 1674 / 167
[2025-01-01 11:59] LABS: Glucose - Point of Care 109 mg/dl (70-99)
[2025-01-01] MEDS: NOVOLOG FLEXPEN-LOW RESISTANCE SC (12:14)
--- NOTE | 2025-01-01 12:19 | W.DS.TRANS ---
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
-
Discharge Instructions:
Discharge Diagnosis/Procedures Acute appendicitis status post appendectomy
Diet Regular,As tolerated
Activity No strenuous activity
Bathing Restrictions OK to Shower
Instructions:
Stand-Alone Forms:
Changes to Home Medications: No
Discharge Medications:
DC Medications w/original date entered in [facility]
atorvastatin 20 mg tablet 20 mg PO QPM 30 days #30 tabs 09/25/22
losartan 50 mg tablet 50 mg PO DAILY Blood pressure 30 days #30 tabs 09/25/22
calcium 500 mg (as carbonate)-vitamin D3 3.125 mcg (125 unit) tablet 1 tab PO BID 12/31/24
dapagliflozin propanediol 10 mg tablet (Farxiga) 10 mg PO DAILY 12/31/24
glipizide 10 mg tablet 10 mg PO BID 12/31/24
letrozole 2.5 mg tablet 2.5 mg PO DAILY 12/31/24
quetiapine 50 mg tablet 50 mg PO QPM 12/31/24
sertraline 50 mg tablet 50 mg PO DAILY 12/31/24
sitagliptin phosphate 50 mg-metformin 1,000 mg tablet (Janumet) 1 tab PO BID 12/31/24
acetaminophen 325 mg tablet 650 mg (2 x 325 mg) PO Q4HPRN PRN mild pain #1 tab 01/01/25
ibuprofen 200 mg tablet 400 - 600 mg (2 - 3 x 200 mg) PO Q6HPRN PRN moderate pain #1 tab 01/01/25
Home Medication Changes
Pending Results: No
[2025-01-01 12:31] LABS: % Basophils 0.2 % (0-2); % Immature Granulocytes 0.9 % (0-0.5); % Monocytes 4.8 % (1.7-9.3); % Neutrophils 86.1 % (42.2-75.2); Absolute Immature Granulocytes 0.1 10^3/uL (0-0.05); Absolute Lymphocytes 0.8 10^3/uL (1.2-3.4); Absolute Monocytes 0.5 10^3/uL (0.1-0.6); Absolute Neutrophils 8.3 10^3/uL (1.4-6.5); Hematocrit 33.3 % (37.0-47.0); Hemoglobin 11.1 g/dL (12.0-16.0); Mean Corp Hgb Conc. 33.3 g/dL (33.0-37.0); Mean Corpuscular Hgb 30.4 pg (27.0-31.0); Mean Corpuscular Volume 91.2 fL (81.0-99.0); Mean Platelet Volume 11.9 fL (7.4-10.4); Nucleated Red Blood Cells % 0 %; Platelet Count 125 10^3/uL (130-400); Red Blood Cell Count 3.65 10^6/uL (4.20-5.40); Red Cell Dist. Width 13.6 % (11.5-14.5); White Blood Cell Count 9.7 10^3/uL (4.8-10.8)
--- NOTE | 2025-01-01 12:38 | CM ---
CM met with pt bedside
Pt resides with her brother in a [place] with [address]
Pt is indep without a device but has a WW and WC at home for use as needed
PCP- Josep Mireles
Rx- [facility] [address]
Call to brother/Josep with pt permission
Update provided and he will transport home
Discharge Disposition- home, no needs, brother transport
[2025-01-01 13:15] VITALS: BP 131/79
[2025-01-01 13:54] LABS: Glycohemoglobin (HgbA1c) 7.1 % (4.0-5.6)
== END 2025-01-01 14:02 | disposition home or self-care (01) ==
LOC: PACU 13:27
PROVIDERS: Internal Medicine; Registered Nurse; ATTENDING PHYSICIAN Surgery; CONSULT PHYSICIAN Hospitalist; EMERGENCY PHYSICIAN Emergency Medicine; FAMILY PHYSICIAN Internal Medicine
DX: K35.891 Other acute appendicitis without perforation, with gangrene (principal); K66.0 Peritoneal adhesions (postprocedural) (postinfection)
CPT/HCPCS: 44970; 88304; 74022; 74177; 80048; 80053; 82947; 82962; 83036; 85025; 96361; 96365; 99285; C1776; Q9967

== ENCOUNTER → 2025-04-26 14:05 | Outpatient (REF) | payer OTHER, SELFPAY | LOC: WDC 14:05 | PROVIDERS: ATTENDING PHYSICIAN Internal Medicine Hematology & Oncology; FAMILY PHYSICIAN Internal Medicine | DX: R92.8 Other abnormal and inconclusive findings on diagnostic imaging of breast (principal) | CPT/HCPCS: 76642 ==